=== PATIENT | female | born 1980 | race African-American/Black ===

== ENCOUNTER 2020-12-25 07:19 | Day surgery (SDC) | payer OTHER ==
--- NOTE | 2020-12-20 08:57 | RAD REPORT ---
EXAM DESCRIPTION: Lilian Jackman (2 Views)12/20/2020 8:41 am CLINICAL HISTORY: Preop for gallbladder surgery. Abdominal pain COMPARISON: None FINDINGS: The lungs appear clear of acute infiltrate. The heart is mildly enlarged IMPRESSION: No acute abnormalities displayed
[2020-12-20 09:04] LABS: Absolute Lymphocytes (CBC) 2.3 K/uL (0.7-4.9); Basophils % 0.8 % (0-1.3); Hematocrit 33.1 % (36.0-45.0); Lymphocytes % 31.6 % (15.3-44.8); MPV 8.4 fL (7.6-11.3)
[2020-12-20 09:22] LABS: ALT/SGPT 20 U/L (12-78); AST/SGOT 11 U/L (15-37); Albumin 3.5 g/dL (3.4-5.0); Alkaline Phosphatase 81 U/L (45-117); Amylase 64 U/L (25-115); BUN Blood Urea Nitrogen 9 mg/dL (7-18); Bicarbonate 28 mmol/L (21-32); Bilirubin Direct 0.1 mg/dL (0-0.2); Bilirubin Total 0.4 mg/dL (0.2-1.0); Glucose Level 102 mg/dL (74-106); Lipase 275 U/L (73-393); Potassium 3.3 mmol/L (3.5-5.1); Protein, Total 7.7 g/dL (6.4-8.2); Sodium Level 142 mmol/L (136-145)
[2020-12-20 10:02] LABS: Anisocytosis 1+; Blood Morphology Comment NOTED (NOT SEEN); Hypochromasia 1+; Platelet Estimate ADEQ
--- NOTE | 2020-12-21 11:45 | EKG ---
Test Date: 2020-12-20 Test Time: 07:21:32 Fork Truck Driver: CRISTO MEASUREMENT RESULTS: Intervals: Rate: 83 ND: 174 QRSD: 84 QT: 396 QTc: 465 [place]: P: 51 ND: 174 QRS: 26 T: 25 INTERPRETIVE STATEMENTS: Normal sinus rhythm Normal ECG Compared to ECG 09/14/2005 07:30:27 Sinus tachycardia no longer present Electronically Signed On 12-21-20 11:44:25 CDT by Gordon Conteh
[2020-12-25] MEDS ORDERED: Ringers Lactate 1,000 ML IV ONE (08:03)
[2020-12-25] MEDS ORDERED: ACETAMINOPHEN 500 MG TAB ONE (08:24)
[2020-12-25] MEDS ORDERED: CELECOXIB 100 MG CAPSULE ONE (08:24)
[2020-12-25] MEDS: CEFOXITIN/NS 1gm 1 GM/50 ML BAG ONE ×2 (08:58→09:10)
[2020-12-25] MEDS ORDERED: ROCURONIUM 50 MG/5 ML VIAL IV ONE (09:22)
[2020-12-25] MEDS ORDERED: propofoL 200 MG/20 ML VIAL IV ONE (09:22)
[2020-12-25] MEDS ORDERED: ONDANSETRON 4 MG/2 ML VIAL ONE ×2 (09:23→11:13)
[2020-12-25] MEDS ORDERED: LIDOCAINE 2% MPF 5 ML VIAL ONE (09:23)
[2020-12-25] MEDS ORDERED: MIDAZOLAM HCL 2 MG/2 ML INJ ONE (09:23)
[2020-12-25] MEDS ORDERED: FENTANYL CITR 250 MCG/5 ML ONE (09:23)
[2020-12-25] MEDS ORDERED: GLYCOPYRROLATE 0.2 MG/ML SYR ONE (09:23)
[2020-12-25] MEDS ORDERED: dexAMETHasone 10 MG/ML VIAL ONE (09:49)
--- NOTE | 2020-12-25 10:11 | P.BOP ---
Preoperative diagnosis: acute cholecystitis, symptomatic cholelithiasis Postoperative diagnosis: same Primary procedure: Laparoscopic cholecystectomy Secondary procedure: Laparoscopic KATERINE Labor Relations Consultant: SIRENA GOFF (HOUSE PAINTING INSTRUCTOR) Estimated blood loss: <10cc Specimen: gb Findings: multiple RUQ adhesions Anesthesia: General Complications: None Transferred to: Recovery Room Condition: Good
[2020-12-25] MEDS: HYDROMORPHONE HCL 1 MG/ML INJ ONE ×2 (10:50→10:55)
[2020-12-25 11:12] VITALS: O2SAT 96
[2020-12-25 12:24] VITALS: TEMP 97
[2020-12-25] MEDS ORDERED: HYDROCODONE/APAP 7.5/325 MG TAB ONE (12:26)
[2020-12-25 12:36] VITALS: BP 120/50
--- NOTE | 2020-12-25 13:27 | DS ---
Diagnoses: Acute cholecystitis, symptomatic cholelithiasis, intraabdominal adhesions. Procedures: Laparoscopic cholecystectomy, laparoscopic lysis of adhesions. Disposition: Home. Activity: As tolerated. No heavy lifting. Plan: Follow up in my office in 1 week. Call for appointment at [phone]. Keep area dry for 48 tiffany rs, then may shower. Keep Steri-Strips intact. Medications: Include Augmentin 875 p.o. q.12 and Tylenol No.3 q.4 hours p.r.n. CARLI/NIKOLAY Voice ID: [id number] Report ID: [id number]
--- NOTE | 2020-12-25 13:34 | OP ---
Date of Procedure: 12/25/2020 Surgeon: Nikhil Corcoran MD Assistant Pastry Chef: Gill Cheung. Preoperative Diagnoses: Acute cholecystitis, symptomatic cholelithiasis, morbid obesity. Postoperative Diagnoses: Acute cholecystitis, symptomatic cholelithiasis, morbid obesity plus intraa bdominal adhesions. Procedures: Laparoscopic cholecystectomy, laparoscopic lysis of adhesions. Estimated Blood Loss: Less than 10 mL. Specimen: Gallbladder. Findings: The patient has extensive amount of adhesions of omentum into the liver itself and to the gallbladder itself. We have to LigaSure and spend at least half of the time of the surgery just doin g the adhesions down to be able to even visualize the gallbladder. The gallbladder shows evidence of acute cholecystitis and distention. Indication: This is the case of a 40-year-old patient, who comes to us with above diagnoses, acute c holecystitis, symptomatic cholelithiasis, right upper quadrant abdominal pain. Benefits, alternative s, and risks of laparoscopic possible open cholecystectomy were fully explained, which include, but n ot limited to infection, bleeding, damage to adjacent structures, anesthesia complication, choledocho lithiasis, bile leak, pancreatitis, [place], and even . She also understands this may not relieve an y symptoms. She might need more than one surgical intervention. She understood, signed a consent. Procedure In Detail: The patient was brought to the operating room, placed in supine position. Anes thesia was done without complication. Abdominal area was prepped and draped in usual sterile fashion . Marcaine 0.5% was injected for local anesthetic followed by sharp incision of the skin in the infr aumbilical region. Incision was carried down to fascia, which was opened under direct vision. Perit oneum was encountered, opened under direct vision. Vicryl #1 placed inside the fascia. Annalisa troca r was carefully introduced. Pneumoperitoneum was obtained. Once we visualized the area, there were too many adhesions of omentum to the liver and gallbladder. The gallbladder could not be visualized, so using a LigaSure device, we carefully and methodically chose to get the adhesions down until we h ad the area free enough and then we were able to visualize the gallbladder and then the procedure con tinued as expected. Unfortunately, we have to take half of the time just to get the adhesions out of that area but it was worthy since we were able to liberate the gallbladder and then continue the pro cedure laparoscopically. So at that moment, I proceeded to put a grasper in the fundus of the gallbl adder, another grasper in the infundibulum, retracted the gallbladder in the inferolateral fashion, e xposing the triangle of Calot and obtaining critical view. Cystic duct and cystic artery were clearl y isolated, free circumferentially and a connection between those and the gallbladder were clearly id entified. I proceeded to ligate those by using at least 3 clips proximal, 1 clip distal, ligation in middle. Same was done with the cystic artery. No bile leak, no bleeding. The gallbladder was rodrigo goyo from liver using Bovie cauterizer and removed from abdominal cavity using EndoCatch through the u mbilical incision. The area was inspected once again. No bile leak, no bleeding. The area of the l ysis of adhesions shows no bleeding. At that moment, I proceeded to remove the trocars under direct vision. Deflated pneumoperitoneum. Closed the fascia with #1 Vicryl. Irrigated the subcutaneous ti ssue, closed that with 3-0 chromic and skin with anushka. Sponge count and instrument counts correct . The patient tolerated the procedure well. The patient was on the way to recovery in stable condit ion. CARLI/REBAL Voice ID: [id number] Report ID: [id number]
== END 2020-12-25 13:05 | disposition home or self-care (01) ==
LOC: PRE 07:19
PROVIDERS: ATTEND Surgery
PROC: 0DNW4ZZ Release Peritoneum, Percutaneous Endoscopic Approach (ICD-10-PCS; 2020-12-25)
PROC: 0FT44ZZ Resection of Gallbladder, Percutaneous Endoscopic Approach (ICD-10-PCS; principal; 2020-12-25 08:45)
DX: K80.10 Calculus of gallbladder with chronic cholecystitis without obstruction (principal); K66.0 Peritoneal adhesions (postprocedural) (postinfection); E66.01 Morbid (severe) obesity due to excess calories; Z20.822 Contact with and (suspected) exposure to COVID-19
CPT/HCPCS: 93005; 85025; 80048; 36415; 82150; 81025; 80076; 88304; 83690; 71046; 47562; 49329; U0002; J2704; J2250; J3010; J1100; J1170; J7120; J0694; J2405 ×2

== ENCOUNTER 2023-09-03 11:06 | Emergency (ER) | payer BC ==
[2023-09-03] MEDS ORDERED: MORPHINE 4 MG/ML SYR ONE (11:30)
[2023-09-03] MEDS ORDERED: ONDANSETRON 4 MG/2 ML VIAL ONE (11:30)
--- NOTE | 2023-09-03 12:05 | RAD REPORT ---
EXAM DESCRIPTION: Reemat Single View09/03/2023 11:57 am CLINICAL HISTORY: CHEST PAIN COMPARISON: Chest Pa And Lat (2 Views) dated 12/20/2020 TECHNIQUE: Portable AP view of the chest. FINDINGS: The lungs are clear. No pneumothorax or effusion. The cardiomediastinal contours are unre markable. IMPRESSION: No acute cardiopulmonary process.
[2023-09-03 12:10] LABS: ALT/SGPT 16 U/L (13-56); Albumin 3.6 g/dL (3.4-5.0); Albumin/Globulin Ratio 0.9 (1.1-1.8); Alkaline Phosphatase 90 U/L (45-117); Anion Gap 5.4 mEq/L (5.0-15.0); BUN Blood Urea Nitrogen 8 mg/dL (7-18); Bicarbonate 30 mEq/L (21-32); Bilirubin Direct 0.2 mg/dL (0-0.2); Bilirubin Indirect, Calculated 0.4 mg/dL (0.2-0.8); Bilirubin Total 0.6 mg/dL (0.2-1.0); Globulin 4.1 g/dL (2.3-3.5); Glomerular Filtration Rate 92 ml/min (=/>90); Glucose Level 99 mg/dL (74-106); Magnesium 2.1 mg/dL (1.6-2.4); Potassium 3.4 mEq/L (3.5-5.1); Protein, Total 7.7 g/dL (6.4-8.2); Sodium Level 141 mEq/L (136-145); Troponin High Sensitivity 3.2 pg/mL (<58.9)
[2023-09-03 12:16] LABS: AST/SGOT < 10 U/L (15-37)
[2023-09-03 12:21] LABS: Absolute Basophils 0.1 K/uL (0-0.5); Absolute Eosinophils 0.1 K/uL (0-0.5); Absolute Lymphocytes (CBC) 2.8 K/uL (0.7-4.9); Absolute Monocytes 0.6 K/uL (0.1-1.3); Absolute Neutrophil 5.9 K/uL (1.8-8.0); Basophils % 0.9 % (0-1.3); Eosinophils % 0.8 % (0-4.4); Hematocrit 25.7 % (36.0-45.0); Hemoglobin 7.2 g/dL (12.0-15.0); Lymphocytes % 29.9 % (15.3-44.8); MCH 17.2 pg (27.0-35.0); MCHC 28.2 g/dL (32.0-36.0); MCV 60.9 fL (80-100); MPV 8.4 fL (7.6-11.3); Monocytes % 6.4 % (3.3-12.3); Nucleated RBC Absolute Count 0.1 (0-0); Nucleated Red Blood Cells % 0.9 % (0-0); Platelets 564 thou/uL (152-406); RBC Red Blood Cell Count 4.21 M/uL (3.86-4.86); Red Cell Distribution Width 22.2 % (12.1-15.2)
[2023-09-03 14:04] LABS: Differential Total Cells Count 100; Eosinophils 2 % (0-3); Lymphocytes 28 % (15-42); Monocytes 1 % (0-10); Nucleated Red Blood Cells 3 /100WBC; Segmented Neutrophils 68 % (40-80)
[2023-09-03 14:06] LABS: Anisocytosis 2+; Blood Morphology Comment NOTED (NOT SEEN); Hypochromasia 3+; Platelet Estimate ADEQ
[2023-09-03] MEDS ORDERED: NA CHLORIDE 0.9% 250 ML ONE (15:25)
[2023-09-03] MEDS ORDERED: ONDANSETRON 4 MG (ODT) TAB ONE (16:48)
--- NOTE | 2023-09-03 20:58 | ER ---
Nurse's Notes [facility] Name: Kaycee Sandoval Age: 43 yrs Sex: Female : 1980 Arrival Date: 09/03/2023 Time: 11:06 Bed 8 Private MD: Diagnosis: Symptomatic anemia;Hypokalemia;Iron deficiency anemia secondary to blood loss (chronic) Presentation: 09/02 11:20 Chief complaint: Patient states: "I started having center chest pain last night and mb9 SOB. The CP goes to my right side and my back now. I recently had a blood transfusion and was told to come get checked out to make sure my levels are ok.". Coronavirus screen: Vaccine status: Patient reports being unvaccinated. Ebola Screen: No symptoms or risks identified at this time. Initial Sepsis Screen: Does the patient meet any 2 criteria? No. Patient's initial sepsis screen is negative. Does the patient have a suspected source of infection? No. Patient's initial sepsis screen is negative. Risk Assessment: Do you want to hurt yourself or someone else? Patient reports no desire to harm self or others. Onset of symptoms was September 03, 2023. 11:20 Acuity: RIMMA 3 mb9 11:20 Method Of Arrival: Ambulatory mb9 CARTOONIST SPECIAL EFFECTS: 11:23 LMP 08/2023, unknown mb9 Historical: - Allergies: 11:21 No Known Allergies; mb9 - Home Meds: 11:21 bupropion HCl 150 mg Oral Tablet, Extended Release 24 hr [Active]; amlodipine 10 mg mb9 tablet [Active]; - PMHx: 11:21 Hypertensive disorder; Anemia; mb9 - PSHx: 11:21 Cholecystectomy; mb9 - Immunization history:: Adult Immunizations up to date. - Infectious Disease History:: Denies. - Social history:: Smoking status: Patient denies any tobacco usage or history of. - Family history:: not pertinent. Screenin:[facility] ED Fall Risk Assessment (Adult) History of falling in the last 3 months, mb9 including since admission No falls in past 3 months (0 pts) Confusion or Disorientation No (0 pts) Intoxicated or Sedated No (0 pts) Impaired Gait No (0 pts) Mobility Assist Device Used No (0 pt) Altered Elimination No (0 pt) Score/Fall Risk Level 0 - 2 = Low Risk Oriented to surroundings, Maintained a safe environment, Educated pt \\T\\ family on fall prevention, incl call for assistance when getting out of bed. Abuse screen: Denies threats or abuse. Nutritional screening: No deficits noted. Tuberculosis screening: No symptoms or risk factors identified. Assessment: 11:36 General: Appears in no apparent distress. Behavior is calm, cooperative. Pain: mb9 Complains of pain in chest Pain radiates to back and right arm Pain currently is 9 out of 10 on a pain scale. Quality of pain is described as sharp, throbbing, Pain began 1 day ago. Is continuous. Neuro: Angela Agitation-Sedation Scale (RASS): 0 - Alert and Calm Level of Consciousness is awake, alert, obeys commands, Oriented to person, place, time, situation, Appropriate for age. Cardiovascular: Reports chest pain, shortness of breath, Heart tones S1 S2 present Patient's skin is warm and dry. Rhythm is regular. Respiratory: Airway is patent Respiratory effort is even, unlabored, Respiratory pattern is regular, symmetrical, Breath sounds are clear bilaterally. GI: Abdomen is round non-distended, Bowel sounds present X 4 quads. Abd is soft and non tender X 4 quads. : No signs and/or symptoms were reported regarding the genitourinary system. EENT: No signs and/or symptoms were reported regarding the EENT system. Derm: Skin is pink, warm \\T\\ dry. Musculoskeletal: Range of motion: intact in all extremities. 13:00 Reassessment: No changes from previously documented assessment. Patient and/or family mb9 updated on plan of care and expected duration. Pain level reassessed. Patient is alert, oriented x 3, equal unlabored respirations, skin warm/dry/pink. 15:04 Reassessment: Patient appears in no apparent distress at this time. No changes from mb9 previously documented assessment. Patient and/or family updated on plan of care and expected duration. Pain level reassessed. Patient is alert, oriented x 3, equal unlabored respirations, skin warm/dry/pink. 16:05 Reassessment: No changes from previously documented assessment. Patient and/or family mb9 updated on plan of care and expected duration. Pain level reassessed. Patient is alert, oriented x 3, equal unlabored respirations, skin warm/dry/pink. 16:15 Reassessment: Administration of 1st unit of RBC started. See transfusion record sheet mb9 for further information. 17:31 Reassessment: No changes from previously documented assessment. Patient and/or family mb9 updated on plan of care and expected duration. Pain level reassessed. Patient is alert, oriented x 3, equal unlabored respirations, skin warm/dry/pink. 18:25 Reassessment: 2nd unit of RBC started. See blood transfusion record sheet for further mb9 information. 19:00 General: PRBCs continue to infuse via pump \\T\\200ml/hr w/o difficulty. NAD noted. VSS. pc2 Family remains at bedside.. 19:23 General: Appears in no apparent distress. Behavior is calm, cooperative. Neuro: Level pc2 of Consciousness is awake, alert, obeys commands, Oriented to person, place, time, situation, Appropriate for age. Cardiovascular: Patient's skin is warm and dry. Respiratory: Airway is patent Respiratory effort is even, unlabored, Respiratory pattern is regular, symmetrical. GI: Abdomen is round non-distended, Bowel sounds present X 4 quads. Abd is soft and non tender. : No signs and/or symptoms were reported regarding the genitourinary system. EENT: No signs and/or symptoms were reported regarding the EENT system. Derm: Skin is intact, Skin is pink, warm \\T\\ dry. Musculoskeletal: Circulation, motion, and sensation intact. Range of motion: intact in all extremities. 20:25 Reassessment: Patient appears in no apparent distress at this time. No changes from pc2 previously documented assessment. Patient and/or family updated on plan of care and expected duration. Pain level reassessed. Patient is alert, oriented x 3, equal unlabored respirations, skin warm/dry/pink. Blood transfusion completed at this time. No evidence of transfusion reaction noted. VS updated and stable Patient states feeling better. Patient states symptoms have improved. Vital Signs: 11:20 BP 157 / 89; Pulse 84; Resp 18; Temp 98.5; Pulse Ox 100% on R/A; Weight 131.54 kg; mb9 Height 5 ft. 7 in. ; Pain 9/10; 12:43 BP 139 / 76; Pulse 75; Resp 18; Pulse Ox 100% on R/A; mb9 13:41 BP 147 / 77; Pulse 78; Resp 18; Pulse Ox 100% on R/A; mb9 16:15 BP 155 / 90; Pulse 83; Resp 18; Temp 97.9(O); Pulse Ox 98% on R/A; mb9 16:20 BP 154 / 79; Pulse 85; Resp 18; Temp 98; Pulse Ox 98% on R/A; mb9 16:25 BP 146 / 77; Pulse 87; Resp 18; Temp 98(O); Pulse Ox 98% on R/A; mb9 16:30 BP 144 / 76; Pulse 87; Resp 20; Temp 98; Pulse Ox 100% on R/A; mb9 18:25 BP 142 / 80; Pulse 83; Resp 18; Temp 97.8(T); Pulse Ox 95% on R/A; mb9 18:30 BP 140 / 80; Pulse 85; Resp 18; Temp 97.9; Pulse Ox 95% on R/A; mb9 18:35 BP 136 / 76; Pulse 88; Resp 18; Temp 97.8(T); Pulse Ox 95% on R/A; mb9 18:40 BP 138 / 75; Pulse 86; Resp 18; Temp 97.9(T); Pulse Ox 95% on R/A; mb9 19:25 BP 135 / 85; Pulse 82; Resp 18; Temp 98.5(O); Pulse Ox 98% on R/A; pc2 19:55 BP 138 / 77; Pulse 80; Resp 18; Temp 98.3(O); Pulse Ox 98% on R/A; pc2 20:25 BP 141 / 80; Pulse 79; Resp 18; Temp 98.5(O); Pulse Ox 96% on R/A; pc2 21:08 BP 149 / 88; Pulse 82; Resp 17; Temp 98; Pulse Ox 98% on R/A; Pain 0/10; rg5 11:20 Body Mass Index 45.42 (131.54 kg, 170.18 cm) mb9 11:20 Pain Scale: Adult mb9 21:08 Pain Scale: Adult rg5 16:15 baseline of 1st unit of RBC mb9 18:25 baseline for 2nd unit of RBCs mb9 ED Course: 11:07 Patient arrived in ED. mr 11:07 Coni Barajas RN is Primary Nurse. mb9 11:08 Baltazar Newman MD is Attending Physician. rt 11:19 Arm band placed on. mb9 11:20 EKG done, by ED staff, reviewed by Baltazar Newman MD. mb9 11:21 Triage completed. mb9 11:22 Placed in gown. Bed in low position. Call light in reach. Side rails up X 1. Provided mb9 Education on: press call light if needing anything. Client placed on continuous cardiac and pulse oximetry monitoring. NIBP monitoring applied. panel monitor on. Door closed. Noise minimized. Warm blanket given. Pillow given. 11:36 Initial lab(s) drawn, by ms, sent to lab. Inserted saline lock: 20 gauge in left mb9 antecubital area, using aseptic technique. Blood collected. 11:37 No provider procedures requiring assistance completed. mb9 11:59 XRAY Chest (1 view) In Process Unspecified. EDMS 13:56 Consent for blood and/or blood product transfusion explained by staff, explained by mb9 physician, signed by patient. 16:15 One-on-one care X 15 minutes. mb9 16:50 Troponin High Sensitivity Sent. mb9 18:38 One-on-one care X 15 minutes. mb9 19:01 Report given to SAI LFOWERS. mb9 19:22 Primary Nurse role handed off by Coni Barajas RN pc2 19:22 Alba head, RN is Primary Nurse. pc2 20:57 Attending Physician role handed off by Baltazar Newman MD kacey 20:57 Abdon Garcia MD is Attending Physician. kacey Administered Medications: 11:30 Drug: morphine IVP or IV 4 mg IVP once over 4 mins Route: IVP; Infused Over: 4 mins; mb9 Site: left antecubital; 13:20 Follow up: Response: No adverse reaction mb9 11:32 Drug: Ondansetron IVP 4 mg IVP once; over 2 minutes Route: IVP; Site: left antecubital; mb9 13:20 Follow up: Response: No adverse reaction mb9 16:50 Drug: Ondansetron Oral Disintegrating Tablet Oral Disintegrating Tablet 4 mg PO once mb9 Route: PO; Medication: 11:23 VIS not applicable for this client. mb9 Outcome: 20:58 Discharge ordered by . kacey 21:21 Patient left the ED. rg5 Signatures: Dispatcher [employer] EDMS Abdon Garcia, MD MD kacey Alvarez, Coni, Reg Reg mr Barajas, Coni Gabriel, RN RN mb9 Baltazar Newman MD MD rt Kristofer Calderón RN RN rg5 Alba head, RN RN pc2 Corrections: (The following items were deleted from the chart) 12:44 12:43 BP 139 / 76; Pulse 75bpm; Resp 8bpm; Pulse Ox 100% RA; mb9 mb9 16:22 16:15 BP 155 / 60; Pulse 83bpm; Resp 18bpm; Pulse Ox 98% RA; Temp 97.9F Oral; baseline mb9 of 1st unit of RBC; mb9 20:27 19:25 BP 135 / 85; Pulse 82bpm; Resp 18bpm; Pulse Ox 98%; Temp 98.5F Oral; pc2 pc2 20:28 19:55 BP 138 / 77; Pulse 80bpm; Resp 18bpm; Pulse Ox 98% RA; Temp 98.3F; pc2 pc2
--- NOTE | 2023-09-03 20:58 | EDPHYS ---
Physician Documentation [facility] Name: Kaycee Sandoval Age: 43 yrs Sex: Female : 1980 Arrival Date: 09/03/2023 Time: 11:06 Bed 8 Private MD: ED Physician Abdon Garcia HPI: 09/02 11:37 This 43 yrs old Black Female presents to ER via Ambulatory with complaints of Chest rt Pain. 11:37 Patient presents to the ED with chest pain to the upper part of the chest, rt nonradiating. This started at about 11 last night when she was sitting down. Patient also reports of fatigue, shortness of breath. Patient states that she has menorrhagia to anemia, last received blood transfusion about 2 weeks ago but did have a heavy menses following that. States the symptoms are similar to when she needs a blood transfusion. Patient denies any ongoing bleeding. Denies other acute complaints at this time, symptoms are moderate in severity, no other aggravating or alleviating factors.. 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 - Infectious Disease History:: Denies. - Social history:: Smoking status: Patient denies any tobacco usage or history of. - Family history:: not pertinent. ROS: 11:37 Abdomen/GI: Negative for abdominal pain, nausea, vomiting, diarrhea, and constipation, rt MS/Extremity: Negative for injury and deformity, Skin: Negative for injury, rash, and discoloration, Neuro: Negative for headache, weakness, numbness, tingling, and seizure, 11:37 Constitutional: Positive for fatigue, Negative for fever, 11:37 Cardiovascular: Positive for chest pain, Negative for edema, 11:37 Respiratory: Positive for shortness of breath, Negative for cough, Exam: 11:37 Constitutional: This is a well developed, well nourished patient who is awake, alert, rt and in no acute distress. Head/Face: Normocephalic, atraumatic. Chest/axilla: Normal chest wall appearance and motion. Nontender with no deformity. No lesions are appreciated. Cardiovascular: Regular rate and rhythm with a normal S1 and S2. No gallops, murmurs, or rubs. Normal PMI, no JVD. No pulse deficits. Respiratory: Lungs have equal breath sounds bilaterally, clear to auscultation and percussion. No rales, rhonchi or wheezes noted. No increased work of breathing, no retractions or nasal flaring. Abdomen/GI: Soft, non-tender, with normal bowel sounds. No distension or tympany. No guarding or rebound. No evidence of tenderness throughout. Skin: Warm, dry with normal turgor. Normal color with no rashes, no lesions, and no evidence of cellulitis. MS/ Extremity: Pulses equal, no cyanosis. Neurovascular intact. Full, normal range of motion. Neuro: Awake and alert, GCS 15, oriented to person, place, time, and situation. Cranial nerves II-XII grossly intact. Motor strength 5/5 in all extremities. Sensory grossly intact. Cerebellar exam normal. Normal gait. 11:37 ECG was reviewed by the Attending Physician. Vital Signs: 11:20 BP 157 / 89; Pulse 84; Resp 18; Temp 98.5; Pulse Ox 100% on R/A; Weight 131.54 kg; mb9 Height 5 ft. 7 in. ; Pain 9/10; 12:43 BP 139 / 76; Pulse 75; Resp 18; Pulse Ox 100% on R/A; mb9 13:41 BP 147 / 77; Pulse 78; Resp 18; Pulse Ox 100% on R/A; mb9 16:15 BP 155 / 90; Pulse 83; Resp 18; Temp 97.9(O); Pulse Ox 98% on R/A; mb9 16:20 BP 154 / 79; Pulse 85; Resp 18; Temp 98; Pulse Ox 98% on R/A; mb9 16:25 BP 146 / 77; Pulse 87; Resp 18; Temp 98(O); Pulse Ox 98% on R/A; mb9 16:30 BP 144 / 76; Pulse 87; Resp 20; Temp 98; Pulse Ox 100% on R/A; mb9 18:25 BP 142 / 80; Pulse 83; Resp 18; Temp 97.8(T); Pulse Ox 95% on R/A; mb9 18:30 BP 140 / 80; Pulse 85; Resp 18; Temp 97.9; Pulse Ox 95% on R/A; mb9 18:35 BP 136 / 76; Pulse 88; Resp 18; Temp 97.8(T); Pulse Ox 95% on R/A; mb9 18:40 BP 138 / 75; Pulse 86; Resp 18; Temp 97.9(T); Pulse Ox 95% on R/A; mb9 19:25 BP 135 / 85; Pulse 82; Resp 18; Temp 98.5(O); Pulse Ox 98% on R/A; pc2 19:55 BP 138 / 77; Pulse 80; Resp 18; Temp 98.3(O); Pulse Ox 98% on R/A; pc2 20:25 BP 141 / 80; Pulse 79; Resp 18; Temp 98.5(O); Pulse Ox 96% on R/A; pc2 21:08 BP 149 / 88; Pulse 82; Resp 17; Temp 98; Pulse Ox 98% on R/A; Pain 0/10; rg5 11:20 Body Mass Index 45.42 (131.54 kg, 170.18 cm) mb9 11:20 Pain Scale: Adult mb9 21:08 Pain Scale: Adult rg5 16:15 baseline of 1st unit of RBC mb9 18:25 baseline for 2nd unit of RBCs mb9 MDM: 11:20 Patient medically screened. rt 19:19 Differential diagnosis: Symptomatic anemia, ACS, dysrhythmia. HEART Score: History: rt Slightly Suspicious (0), ECG: Normal (0), Age: < or = 45 years (0), Risk Factors: 1 or 2 risk factors (1), Troponin: < or = 1 x Normal Limit (0), Total Score = 1. Data reviewed: vital signs, nurses notes, lab test result(s), EKG, radiologic studies. Consideration of Admission/Observation Escalation of care including admission/observation considered. Patient with resolution of symptoms following blood transfusion. She is no longer bleeding. Given 2 negative troponins, patient does not require admission for ACS rule out.. I considered the following discharge prescriptions or medication management in the emergency department Medications were administered in the Emergency Department. See MAR. Independent interpretation of the following test(s) in the Emergency Department X-Ray: My interpretation is No consolidation seen on interpretation of x-ray images. Test considered but Not performed: CT: Low suspicion for pulmonary embolism, CT angiogram not. Counseling: I had a detailed discussion with the patient and/or guardian regarding the historical points, exam findings, and any diagnostic results supporting the discharge/admit diagnosis, lab results, radiology results, the need for outpatient follow up, to return to the emergency department if symptoms worsen or persist or if there are any questions or concerns that arise at home. Response to treatment: the patient's symptoms have resolved after treatment. 09/02 11: Order name: Type And Screen rt 09/02 11: Order name: Basic Metabolic Panel; Complete Time: 13:20 rt 09/02 11: Order name: CBC with Diff; Complete Time: 16:16 rt 09/02 11:28 Order name: LFT's; Complete Time: 13:20 rt 09/02 11:28 Order name: Magnesium; Complete Time: 13:20 rt 09/02 11:28 Order name: Troponin HS; Complete Time: 13:20 rt 09/02 14:00 Order name: Packed RBCs (Additional Unit) EDMS 09/02 14:00 Order name: Manual Differential EDMS 09/02 16:16 Order name: Troponin High Sensitivity; Complete Time: 18:12 rt 09/02 11:28 Order name: XRAY Chest (1 view); Complete Time: 12:15 rt 09/02 11:28 Order name: EKG; Complete Time: rt 09/02 11:28 Order name: Cardiac monitoring; Complete Time: rt 09/02 11: Order name: EKG - Nurse/Tech; Complete Time: rt 09/02 11: Order name: IV Saline Lock; Complete Time: rt 09/02 11: Order name: Labs collected and sent; Complete Time: rt 09/02 11: Order name: O2 Per Protocol; Complete Time: rt 09/02 11: Order name: O2 Sat Monitoring; Complete Time: : rt EC:37 Rate is 90 beats/min. Rhythm is regular, Normal Sinus Rhythm with No ectopy. QRS [place] rt is Normal. NE interval is normal. QRS interval is normal. QT interval is normal. No Q waves. No ST changes noted. Administered Medications: 11:30 Drug: morphine IVP or IV 4 mg IVP once over 4 mins Route: IVP; Infused Over: 4 mins; mb9 Site: left antecubital; 13:20 Follow up: Response: No adverse reaction mb9 11:32 Drug: Ondansetron IVP 4 mg IVP once; over 2 minutes Route: IVP; Site: left antecubital; mb9 13:20 Follow up: Response: No adverse reaction mb9 16:50 Drug: Ondansetron Oral Disintegrating Tablet Oral Disintegrating Tablet 4 mg PO once mb9 Route: PO; Disposition: 19:19 Critical Care:. rt Disposition Summary: 09/03/23 20:58 Discharge Ordered Notes: Location: Home kacey Problem: an acute exacerbation kacey Symptoms: are resolved kacey Condition: Stable kacey Diagnosis - Symptomatic anemia kacey - Hypokalemia kacey - Iron deficiency anemia secondary to blood loss (chronic) kacey Followup: rt - With: Private Physician - When: 2 - 3 days - Reason: Discharge Instructions: - Iron Deficiency Anemia, Adult kacey - Potassium Content of Foods kacey - Iron Deficiency Anemia, Adult, Ecax-fr-Gcvo kacey - Hypokalemia kacey - Preventing Iron Deficiency Anemia, Adult kacey - Discharge Summary Sheet rt - Anemia rt - Blood Transfusion, Adult, Care After rt Forms: - Medication Reconciliation Form kacey - Antibiotic Education kacey - Prescription Opioid Use kacey - Patient Portal Instructions kacey - Leadership Thank You Letter [facility] Prescriptions: - Ferrous Sulfate 325 mg (65 mg Iron) Oral Tablet - take 1 tablet ORAL route every 8 hours; 90 tablet; Refills: 0, Product kacey Selection Permitted Critical care time excluding procedures: 19:19 Critical care time: Bedside Care: 35 minutes. Total time: 35 minutes rt Signatures: Dispatcher [employer] EDAbdon Pardo MD MD cha Breneman, Mary Beth, RN RN mb9 Baltazar Newman MD MD rt Corrections: (The following items were deleted from the chart) 11:28 11:28 BASIC METABOLIC PANEL+C.LAB.BRZ ordered. EDMS EDMS 11:28 11:28 CBC+H.LAB.BRZ ordered. EDMS EDMS 11:28 11:28 HEPATIC FUNCTION+C.LAB.BRZ ordered. EDMS EDMS 11:28 11:28 MAGNESIUM+C.LAB.BRZ ordered. EDMS EDMS : 11:28 Troponin High Sensitivity+C.LAB.BRZ ordered. EDMS EDMS 11:28 TYPE AND SCREEN+BB.LAB.BRZ ordered. EDMS EDMS 14:00 12:46 CBC Smear Scan ordered. EDMS EDMS 16:17 16:17 Troponin High Sensitivity+C.LAB.BRZ ordered. EDMS EDMS
[2023-09-03 22:31] VITALS: BP 149/88; TEMP 98; O2SAT 98
--- NOTE | 2023-09-04 14:06 | EKG ---
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
== END 2023-09-03 21:21 | disposition home or self-care (01) ==
LOC: ER 11:06
PROC: 30233N1 Transfusion of Nonautologous Red Blood Cells into Peripheral Vein, Percutaneous Approach (ICD-10-PCS; principal; 2023-09-03)
DX: D50.0 Iron deficiency anemia secondary to blood loss (chronic) (principal); E87.6 Hypokalemia
CPT/HCPCS: 36430; 93005; 85025; 80048; 36415; 86900; 83735; 86850; 86901; 80076; 86920 ×2; 84484 ×2; 71045; 96375; 96374; 99285; Q0162; J2405; P9016 ×2; J7050